=== PATIENT | male | born 1970 | race Caucasian/White ===

== ENCOUNTER 2022-06-16 07:36 | Observation (INO) ==
[2022-06-17] MEDS ORDERED: Naloxone 0.4 MG/ML INJ IVP PRN (09:24)
[2022-06-17] MEDS ORDERED: Melatonin 3 MG TABLET PO PRN (09:24)
[2022-06-17] MEDS ORDERED: Ondansetron 4 MG/2 ML VIAL IVP PRN (09:24)
[2022-06-17] MEDS: 0.9 % Sodium Chloride 1,000 ML IVC SCH ×2 (10:17→20:56)
[2022-06-17] MEDS ORDERED: Ketorolac 30 MG/ML VIAL IVP PRN (12:41)
[2022-06-18 02:57] LABS: Basophils % 0.5 %; Eosinophils # 0.2 K/mcL (0.0-0.6); Eosinophils % 2.6 %; Hematocrit 38.3 % (37.5-50.1); Hemoglobin 12.8 g/dL (12.9-16.9); Immature Granulocytes % 0.3 % (0-4); Lymphocytes # 1.2 K/mcL (0.6-4.6); Lymphocytes % 15.1 %; Mean Corpuscular HGB Conc 33.4 g/dL (31.6-35.5); Mean Corpuscular Hemoglobin 28.9 pg (28.0-33.3); Mean Corpuscular Volume 86.5 fL (83.0-100.0); Mean Platelet Volume 9.2 fL (9.4-12.4); Monocytes # 0.6 K/mcL (0.0-1.3); Monocytes % 7.5 %; Neutrophils # 5.7 K/mcL (1.6-8.9); Platelet Count 197 K/mcL (140-400); Red Blood Count 4.43 M/mcL (4.19-5.50); Red Cell Distribution Width 12.5 % (11.5-14.5); White Blood Count 7.7 K/mcL (4.3-11.1)
[2022-06-18 03:18] LABS: Alanine Aminotransferase 28 Units/L (7-52); Albumin 3.4 g/dL (3.5-5.7); Albumin/Globulin Ratio 1.2 (1.1-2.2); Alkaline Phosphatase 89 Units/L (34-104); Aspartate Amino Transferase 29 Units/L (13-39); BUN/Creatinine Ratio 17 (6-26); Bilirubin,Direct 0.4 mg/dL (0.0-0.2); Bilirubin,Indirect 0.6 mg/dL (0.0-1.0); Blood Urea Nitrogen 17 mg/dL (6-20); Calcium 8.2 mg/dL (8.6-10.3); Carbon Dioxide 24 mEq/L (23-29); Chloride 107 mEq/L (98-107); Globulin 2.9 g/dL (2.4-3.5); Glucose 85 mg/dL (70-105); Magnesium 2.2 mg/dL (1.6-2.6); Osmolality,Calculated 287 (280-300); Phosphorous 1.6 mg/dL (2.7-4.5); Potassium 3.7 mEq/L (3.5-5.1); Sodium 138 mEq/L (136-145); Total Protein 6.3 g/dL (6.4-8.9); eGFR For African Americans > 60 (> 60); eGFR For Non-African Americans > 60 (> 60)
[2022-06-18 08:02] LABS: Lipase 82 Units/L (11-82)
[2022-06-18] MEDS: lisinopriL 20 MG TABLET PO SCH (13:27)
[2022-06-19 07:18] VITALS: BP 137/94; PULSE 65; TEMP 97.5; O2SAT 96
[2022-06-19] MEDS: lisinopriL 20 MG TABLET PO SCH (07:40)
== END 2022-06-19 09:53 | disposition home or self-care (01) ==
LOC: 3ANU → SUATTDRO 06-17 09:21
PROVIDERS: ADMIT Internal Medicine; ATTEND Internal Medicine